=== PATIENT | male | born 1960 | race Caucasian/White ===

== ENCOUNTER 2018-05-17 16:57 | Inpatient (IN) | payer OTHER ==
[2018-05-17 18:28] VITALS: BMI 21.9
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
[2018-05-17] MEDS ORDERED: MAGNESIUM CITRATE 300 ML BOTTLE PO PRN (21:13)
[2018-05-17] MEDS ORDERED: MAG HYDROX/AL HYDROX/SIMETH 30 ML UNIT-DOSE CUP PO PRN (21:13)
[2018-05-17] MEDS ORDERED: NICOTINE POLACRILEX 2 MG GUM BC PRN (21:13)
[2018-05-17] MEDS ORDERED: IBUPROFEN 400 MG TABLET (FP) PO PRN (21:13)
[2018-05-17] MEDS ORDERED: chlordiazePOXIDE HCL 25 MG CAPSULE PO PRN (21:13)
[2018-05-17] MEDS ORDERED: ACETAMINOPHEN 325 MG TABLET (FP) PO PRN (21:13)
[2018-05-17] MEDS ORDERED: MENTHOL/PHENOL 1 EACH UD MM PRN (21:13)
[2018-05-17] MEDS ORDERED: MAGNESIUM HYDROX 2400MG/30ML ORAL SUSPENSION 30 ML CUP PO PRN (21:13)
[2018-05-17] MEDS ORDERED: LOPERAMIDE HCL 2 MG CAPSULE PO PRN (21:13)
[2018-05-17] MEDS ORDERED: chlordiazePOXIDE HCL 25 MG CAPSULE PO ONE (21:45)
[2018-05-17] MEDS ORDERED: MELATONIN 5 MG TABLETS PO PRN (22:00)
[2018-05-17] MEDS: levETIRAcetam 500 MG TABLET (FP) PO SCH (22:00)
[2018-05-17] MEDS: chlordiazePOXIDE HCL 25 MG CAPSULE PO SCH (22:00)
[2018-05-17] MEDS: THIAMINE HCL 100 MG TABLET (FP) PO SCH (22:01)
[2018-05-17 23:12] LABS: URINE APPEARANCE CLEAR; URINE BILIRUBIN NEGATIVE (<2.0 mg/dL); URINE COLOR AMBER; URINE GLUCOSE (UA) NEGATIVE (NEGATIVE); URINE KETONE NEGATIVE (NEGATIVE); URINE LEUK ESTERASE NEGATIVE (NEGATIVE); URINE NITRITE NEGATIVE (NEGATIVE); URINE PROTEIN NEGATIVE (NEGATIVE)
[2018-05-18] MEDS: chlordiazePOXIDE HCL 25 MG CAPSULE PO SCH ×4 (05:14→22:27)
[2018-05-18] MEDS ORDERED: METHADONE HCL 10 MG TABLET PO ONE (08:51)
[2018-05-18] MEDS ORDERED: METHADONE 40 MG, METHADONE 10 MG PO ONE (09:00)
[2018-05-18] MEDS ORDERED: METHADONE HCL 40 MG DISPERSABLE TABLET ONE (09:33)
[2018-05-18] MEDS ORDERED: METHADONE HCL 10 MG TABLET ONE (09:34)
[2018-05-18 10:19] LABS: HEMATOCRIT 35.6 % (35.4-49); HEMOGLOBIN 11.7 GM/dL (11.7-16.9); MCH 32.5 pg (25.7-33.7); MCHC 32.8 g/dl (32.0-35.9); MEAN CELL VOLUME 98.8 fl (80-96); MEAN PLT VOLUME 8.8 fl (7.5-11.1); PLATELET COUNT 70 K/MM3 (134-434); RDW 14.9 % (11.9-15.9); WHITE BLOOD COUNT 3.4 K/mm3 (4.0-10.0)
[2018-05-18 10:20] LABS: ALBUMIN 2.1 g/dl (3.4-5.0); ALK PHOS 195 U/L (45-117); ANION GAP 3 MMOL/L (8-16); BILIRUBIN,TOTAL 1.3 mg/dL (0.2-1); BLOOD UREA NITROGEN 8 mg/dL (7-18); CALCIUM 7.7 mg/dL (8.5-10.1); CHLORIDE 104 mmol/L (98-107); CO2 34 mmol/L (21-32); CREATININE 0.6 mg/dL (0.55-1.3); GLUCOSE,RANDOM 68 mg/dL (74-106); POTASSIUM 3.9 mmol/L (3.5-5.1); SGOT/AST 220 U/L (15-37); SGPT/ALT 83 U/L (13-61); SODIUM 141 mmol/L (136-145); TOT PROT 6.6 g/dl (6.4-8.2)
[2018-05-18] MEDS: PRENATAL VITAMINS W/ FOLIC ACID TABLET (FP) PO SCH (10:30)
[2018-05-18] MEDS: levETIRAcetam 500 MG TABLET (FP) PO SCH ×2 (10:30→22:27)
[2018-05-18] MEDS ORDERED: FLU VACCINE QUAD 60 MCG/0.5 ML (MDV 18-19) IM ONE (12:00)
--- NOTE | 2018-05-18 12:05 | EKG ---
Test Reason : Blood Pressure : / mmHG Vent. Rate : 061 BPM Atrial Rate : 061 BPM P-R Int : 156 ms QRS Dur : 084 ms QT Int : 502 ms P-R-T Axes : 073 062 064 degrees QTc Int : 505 ms NORMAL SINUS RHYTHM WITH SINUS ARRHYTHMIA PROLONGED QT ABNORMAL ECG NO PREVIOUS ECGS AVAILABLE Confirmed by DAYNA WILEY MD ([id number]) on 05/18/2018 12:05:43 PM Referred By: Confirmed By:DAYNA WILEY MD
--- NOTE | 2018-05-18 14:16 | PN ---
S CIWA - CIWA Score Nausea/Vomitin-No Nausea/No Vomiting Muscle Tremors: 4-Moderate,w/Arms Extend Anxiety: 4-Mod. Anxious/Guarded Agitation: 4-Moderately Restless Paroxysmal Sweats: 3 Orientation: 0-Oriented Tacttile Disturbances: 0-None Auditory Disturbances: 0-None Visual Disturbances: 0-None Headache: 0-None Present CIWA-Ar Total Score: 15 [facility] Progress Note (SOAP) Subjective: agitation sweats shakes interrupted sleep body aches Objective: 05/18/18 14:15 Vital Signs Temperature 98.1 F 05/18/18 14:09 Pulse Rate 77 05/18/18 14:09 Respiratory Rate 16 05/18/18 14:09 Blood Pressure 139/85 05/18/18 14:09 O2 Sat by Pulse Oximetry (%) Laboratory Tests 05/17/18 05/18/18 05/18/18 22:09 07:30 07:30 WBC 3.4 L RBC 3.60 L Hgb 11.7 Hct 35.6 MCV 98.8 H MCH 32.5 MCHC 32.8 RDW 14.9 Plt Count 70 L MPV 8.8 Sodium Potassium Chloride Carbon Dioxide Anion Gap BUN Creatinine Creat Clearance w eGFR Random Glucose Calcium Total Bilirubin AST ALT Alkaline Phosphatase Total Protein Albumin Urine Color [place] Urine Appearance Clear Urine pH 6.0 Ur Specific [place] 1.023 Urine Protein Negative Urine Glucose (UA) Negative Urine Ketones Negative Urine Blood Negative Urine Nitrite Negative Urine Bilirubin Negative Urine Urobilinogen 2.0 Ur Leukocyte Esterase Negative RPR Titer HIV 1&2 Antibody Screen Negative HIV P24 Antigen Negative 05/18/18 05/18/18 07:30 07:30 WBC RBC Hgb Hct MCV MCH MCHC RDW Plt Count MPV Sodium 141 Potassium 3.9 Chloride 104 Carbon Dioxide 34 H Anion Gap 3 L BUN 8 Creatinine 0.6 Creat Clearance w eGFR > 60 Random Glucose 68 L Calcium 7.7 L Total Bilirubin 1.3 H AST 220 H ALT 83 H Alkaline Phosphatase 195 H Total Protein 6.6 Albumin 2.1 L Urine Color Urine Appearance Urine pH Ur Specific [place] Urine Protein Urine Glucose (UA) Urine Ketones Urine Blood Urine Nitrite Urine Bilirubin Urine Urobilinogen Ur Leukocyte Esterase RPR Titer Nonreactive HIV 1&2 Antibody Screen HIV P24 Antigen labs noted elevated ast/alt d/c tylenol aaox3 ambulating no acute distress Assessment: 05/18/18 14:16 withdrawal sx Plan: continue detox increase fluids
[2018-05-18] MEDS: THIAMINE HCL 100 MG TABLET (FP) PO SCH (22:27)
[2018-05-19] MEDS ORDERED: METHADONE HCL 10 MG TABLET ONE (04:28)
[2018-05-19] MEDS ORDERED: METHADONE HCL 40 MG DISPERSABLE TABLET ONE (04:28)
[2018-05-19] MEDS: chlordiazePOXIDE HCL 25 MG CAPSULE PO SCH ×2 (05:10→10:12)
[2018-05-19] MEDS ORDERED: METHADONE HCL 40 MG DISPERSABLE TABLET PO SCH (06:00)
[2018-05-19] MEDS ORDERED: METHADONE 40 MG, METHADONE 10 MG PO SCH (06:00)
[2018-05-19 09:15] VITALS: BP 117/72; PULSE 67; TEMP 97.7
--- NOTE | 2018-05-19 10:02 | PN ---
[facility] CIWA - CIWA Score Nausea/Vomitin-No Nausea/No Vomiting Muscle Tremors: 3 Anxiety: 2 Agitation: 3 Paroxysmal Sweats: 3 Orientation: 0-Oriented Tacttile Disturbances: 0-None Auditory Disturbances: 0-None Visual Disturbances: 0-None Headache: 0-None Present CIWA-Ar Total Score: 11 S Progress Note (SOAP) Subjective: anxiety sweats interrupted sleep upset stomach Objective: 05/19/18 10:02 Vital Signs Temperature 97.7 F 05/19/18 09:14 Pulse Rate 67 05/19/18 09:14 Respiratory Rate 18 05/19/18 09:14 Blood Pressure 117/72 05/19/18 09:14 O2 Sat by Pulse Oximetry (%) Laboratory Tests 05/17/18 05/18/18 05/18/18 22:09 07:30 07:30 WBC 3.4 L RBC 3.60 L Hgb 11.7 Hct 35.6 MCV 98.8 H MCH 32.5 MCHC 32.8 RDW 14.9 Plt Count 70 L MPV 8.8 Sodium Potassium Chloride Carbon Dioxide Anion Gap BUN Creatinine Creat Clearance w eGFR Random Glucose Calcium Total Bilirubin AST ALT Alkaline Phosphatase Total Protein Albumin Urine Color [place] Urine Appearance Clear Urine pH 6.0 Ur Specific [place] 1.023 Urine Protein Negative Urine Glucose (UA) Negative Urine Ketones Negative Urine Blood Negative Urine Nitrite Negative Urine Bilirubin Negative Urine Urobilinogen 2.0 Ur Leukocyte Esterase Negative RPR Titer HIV 1&2 Antibody Screen Negative HIV P24 Antigen Negative 05/18/18 05/18/18 07:30 07:30 WBC RBC Hgb Hct MCV MCH MCHC RDW Plt Count MPV Sodium 141 Potassium 3.9 Chloride 104 Carbon Dioxide 34 H Anion Gap 3 L BUN 8 Creatinine 0.6 Creat Clearance w eGFR > 60 Random Glucose 68 L Calcium 7.7 L Total Bilirubin 1.3 H AST 220 H ALT 83 H Alkaline Phosphatase 195 H Total Protein 6.6 Albumin 2.1 L Urine Color Urine Appearance Urine pH Ur Specific [place] Urine Protein Urine Glucose (UA) Urine Ketones Urine Blood Urine Nitrite Urine Bilirubin Urine Urobilinogen Ur Leukocyte Esterase RPR Titer Nonreactive HIV 1&2 Antibody Screen HIV P24 Antigen repeat labs aaox3 ambulating no acute distress Assessment: 05/19/18 10:02 withdrawal sx Plan: continue detox increase fluids MOM prn
[2018-05-19] MEDS: PRENATAL VITAMINS W/ FOLIC ACID TABLET (FP) PO SCH (10:11)
[2018-05-19] MEDS: levETIRAcetam 500 MG TABLET (FP) PO SCH (10:11)
--- NOTE | 2018-05-19 11:23 | EKG ---
Test Reason : Blood Pressure : / mmHG Vent. Rate : 061 BPM Atrial Rate : 061 BPM P-R Int : 150 ms QRS Dur : 078 ms QT Int : 484 ms P-R-T Axes : 074 059 061 degrees QTc Int : 487 ms NORMAL SINUS RHYTHM PROLONGED QT ABNORMAL ECG WHEN COMPARED WITH ECG OF 17-MAY-2018 21:28, NO SIGNIFICANT CHANGE WAS FOUND Confirmed by CHRISTIAN MADRIGAL MD ([id number]) on 05/19/2018 11:23:13 AM Referred By: Confirmed By:CHRISTIAN MADRIGAL MD
--- NOTE | 2018-05-19 13:27 | PN ---
[facility] Progress Note Note: pt states he is going home. pt signed out AMA.
--- NOTE | 2018-05-19 13:31 | DS ---
[facility] Detox Discharge Summary Admission Date: 05/17/18 - History Present History: Alcohol Dependence - Physical Exam Results Vital Signs: Vital Signs Temperature 97.7 F 05/19/18 09:14 Pulse Rate 67 05/19/18 09:14 Respiratory Rate 18 05/19/18 09:14 Blood Pressure 117/72 05/19/18 09:14 O2 Sat by Pulse Oximetry (%) - Treatment Hospital Course: Discharged Condition Good - Medication Discharge Medications: Ambulatory Orders levETIRAcetam [Keppra -] 500 mg PO BID 05/17/18 - AMA Did Patient Leave Against Medical Advice: Yes
[2018-05-19] MEDS ORDERED: chlordiazePOXIDE 5 MG CAPSULE PO SCH (23:00)
[2018-05-20] MEDS ORDERED: chlordiazePOXIDE HCL 10 MG CAPSULE PO SCH (23:00)
== END 2018-05-19 13:00 | disposition left against medical advice (07) | DRG 770 ==
LOC: YASAS 16:57 → Y6N 19:38
PROC: HZ2ZZZZ Detoxification Services for Substance Abuse Treatment (ICD-10-PCS; principal; 2018-05-17)
DX: F10.230 Alcohol dependence with withdrawal, uncomplicated (principal); F11.20 Opioid dependence, uncomplicated; E86.0 Dehydration; I45.81 Long QT syndrome; G40.909 Epilepsy, unspecified, not intractable, without status epilepticus; Z87.891 Personal history of nicotine dependence; Z59.0 Homelessness
CPT/HCPCS: 36415; 80053; 80177; 81003; 85027; 86593; 87389; 90688; 93005; 93010; G0008